=== PATIENT | male | born 1985 | race Caucasian/White ===

== ENCOUNTER 2016-09-01 18:28 | Emergency (ER) | payer OTHER ==
[~2016-09-01] VITALS: Ht 193 cm; Wt 87.0 kg
[~2016-09-01 18:28] MED LIST: HYDR-3533 PO; IBUP-238 PO; METH750T2 PO
[2016-09-01 18:30] VITALS: BP 134/77; PULSE 74; RESP 14; TEMP 98.2; O2SAT 100
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
[2016-09-01] MEDS ORDERED: TETANUS/DIPHTHERIA TOXOID ADULT 0.5 ML VIAL IM ONE (19:15)
[2016-09-04 11:11] LABS: HEPATITIS B SURFACE ANTIBODY GREATER THAN 150 mIU/mL
== END 2016-09-01 20:15 | disposition home or self-care (01) ==
LOC: NEPK 18:28
DX: Z77.21 Contact with and (suspected) exposure to potentially hazardous body fluids (principal); X58.XXXA Exposure to other specified factors, initial encounter; Y93.F9 Activity, other caregiving; Y92.9 Unspecified place or not applicable; Y99.0 Civilian activity done for income or pay; Z23 Encounter for immunization
CPT/HCPCS: 86317; 86703; 86803; 90471; 90714

== ENCOUNTER 2016-12-20 16:44 | Emergency (ER) | payer OTHER ==
[~2016-12-20] VITALS: Ht 188 cm; Wt 85.0 kg
[2016-12-20 16:46] VITALS: BP 125/79; PULSE 90; RESP 20; TEMP 98.9; O2SAT 96
--- NOTE | 2016-12-20 16:50 | PD ---
Physical Exam Time Seen by Provider: 16:48 Narrative 31yo M c/o R eye pain after jabbing himself in the eye w/ his thumb today. Blurry vision. +Eye redness, bloody drainage, purulent drainage. Patient seen in triage. VS reviewed. Awaiting bed placement. Data Data Last Documented VS Vital Signs Date Time Temp Pulse Resp B/P (MAP) Pulse Ox O2 Delivery O2 Flow Rate FiO2 12/20/16 16:46 98.9 90 20 125/79 (94) 96 Room Air MDM Supervised Visit with ALBERT: Tricia Smith Dec 20, 2016 16:50
[2016-12-20] MEDS ORDERED: FLUORESCEIN SOD 1 MG STRIP RIGHT EYE ONE (17:00)
[2016-12-20] MEDS ORDERED: PROPARACAINE HCL 0.5% OPHT SOLN 15 ML BTL RIGHT EYE ONE (17:00)
--- NOTE | 2016-12-20 17:21 | PD ---
HPI Chief Complaint: Eye Problems/Injury Time Seen by Provider: 16:58 Travel History International Travel<30 days: No Contact w/Intl Traveler<30days: No Traveled to known affect area: No History of Present Illness HPI 31-year-old male presents to emergency for her with injury to the right high. 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 He had immediate pain and some blood from the eye itself. He states he waited a while it seemed to getting better but then when he was at the house his pain worsen and he had a little more blood from the eye itself. Vision seems to be intact although uncomfortable. Patient has no known drug allergies. PFSH Past Medical History Pneumonia: Yes (HX OF PER PATIENT REPORT) Past Surgical History Oral Surgery: Yes (manuel perla) Social History Alcohol Use: No Tobacco Use: No Substance Use: No Allergies-Medications (Allergen,Severity, Reaction): Coded Allergies: No Known Allergies (Unverified , 10/25/15) Reported Meds & Prescriptions Reported Meds & Active Scripts Active Review of Systems Except as stated in HPI: all other systems reviewed are Neg General / Constitutional: No: Fever Eyes: Positive: Photophobia, Drainage, Redness, Pain, Tearing, No: Diploplia, Blurred Vision, Foreign Body Sensation, Blind Spots, Visual changes, Blindness HENT: No: Headaches Cardiovascular: No: Chest Pain or Discomfort Respiratory: No: Shortness of Breath Gastrointestinal: No: Abdominal Pain Genitourinary: No: Dysuria Musculoskeletal: No: Pain Skin: No Rash Neurologic: No: Weakness Psychiatric: No: Depression Endocrine: No: Polydipsia Hematologic/Lymphatic: No: Easy Bruising Physical Exam Narrative GENERAL: Patient appears in mild to moderate distress. SKIN: Warm and dry. Normal color. Normal turgor HEAD: Atraumatic. Normocephalic. EYES: Pupils equal and round. No scleral icterus. Right eye has moderate scleral conjunctival injection. Proparacaine drops and fluorescein dye instilled, and was lamp exam shows no corneal abrasion. Patient does appear to have a conjunctival abrasion to the inner lower aspect of the eye. Ocular motions are equal bilaterally. ENT: No nasal bleeding or discharge. Mucous membranes pink and moist. Pharynx is clear. Airway is patent. NECK: Trachea midline. Supple nontender. CARDIOVASCULAR: Regular rate and rhythm. RESPIRATORY: No accessory muscle use. Clear to auscultation. Breath sounds equal bilaterally. GASTROINTESTINAL: Abdomen soft, non-tender, nondistended. Hepatic and splenic margins not palpable. MUSCULOSKELETAL: Extremities without clubbing, cyanosis, or edema. No obvious deformities. NEUROLOGICAL: Awake and alert. No obvious cranial nerve deficits. Motor grossly within normal limits. Five out of 5 muscle strength in the arms and legs. Normal speech. PSYCHIATRIC: Appropriate mood and affect; insight and judgment normal. Data Data Last Documented VS Vital Signs Date Time Temp Pulse Resp B/P (MAP) Pulse Ox O2 Delivery O2 Flow Rate FiO2 12/20/16 16:46 98.9 90 20 125/79 (94) 96 Room Air Orders Orders Proparacaine 0.5% Opth Soln (Alcaine 0.5 (12/20/16 17:00) Fluorescein Strip (Kjrrn-G-Hwtslt A.T.) (12/20/16 17:00) MDM Medical Decision Making Medical Screen Exam Complete: Yes Emergency Medical Condition: Yes Differential Diagnosis Right eye contusion. Right eye scleral tear. Corneal abrasion. Narrative Course Patient will be treated with erythromycin ophthalmic ointment every 4 hours while awake. Patient is given ibuprofen 600 mg 4 times a day #40. Eye patch for comfort is applied. Work note is given for no work until cleared by primary care physician or nitrogen operator as discussed. Patient follow-up sooner if worsening symptoms develop. 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 Patient will need medical clearance on Saturday or Saturday to return to work next week. Additional Instructions: Patient will be treated with erythromycin ophthalmic ointment every 4 hours while awake. Patient is given ibuprofen 600 mg 4 times a day #40. Eye patch for comfort is applied. Work note is given for no work until cleared by primary care physician or nitrogen operator as discussed. Patient follow-up sooner if worsening symptoms develop. Med/Other Pt SpecificInfo: Prescription(s) given Disposition: 01 DISCHARGE HOME Condition: Stable Donte Hussein Dec 20, 2016 17:21
[2016-12-20] MEDS ORDERED: ERYTOIN10 RIGHT EYE (17:22)
== END 2016-12-20 17:34 | disposition home or self-care (01) ==
LOC: NEPK 16:44
DX: S05.01XA Injury of conjunctiva and corneal abrasion without foreign body, right eye, initial encounter (principal); W22.8XXA Striking against or struck by other objects, initial encounter
CPT/HCPCS: 99283

== ENCOUNTER 2017-05-24 19:49 | Emergency (ER) | payer OTHER ==
[~2017-05-24] VITALS: Ht 193 cm; Wt 85.0 kg
[~2017-05-24 19:49] MED LIST changes: +ERYTOIN10 RIGHT EYE; -HYDR-3533 PO; -IBUP-238 PO; -METH750T2 PO
[2017-05-24 19:51] VITALS: BP 132/74; PULSE 112; RESP 18; TEMP 100; O2SAT 97
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
[2017-05-24] MEDS ORDERED: IBUPROFEN 800 MG TAB PO ONE (21:00)
[2017-05-24] MEDS ORDERED: ONDANSETRON ODT 4 MG TAB PO ONE (21:00)
[2017-05-24] MEDS ORDERED: SODIUM CHLOR 0.9% 1000 ML INJ 1,000 ML IV ONE (21:45)
[2017-05-24 22:09] LABS: AUTOMATED NEUTROPHIL # 5.2 TH/MM3 (1.8-7.7); BASOPHIL % 0.4 % (0.0-2.0); EOSINOPHIL % 0.5 % (0.0-4.0); HEMATOCRIT 40.2 % (39.0-51.0); HEMOGLOBIN 13.9 GM/DL (13.0-17.0); LYMPH % 13.7 % (9.0-44.0); MEAN CELL VOLUME 87.1 FL (80.0-100.0); MEAN CORPUSCULAR HEMOGLOBIN 30.1 PG (27.0-34.0); MEAN CORPUSCULAR HGB CONC 34.6 % (32.0-36.0); MEAN PLATELET VOLUME 8.3 FL (7.0-11.0); MONO % 13.1 % (0.0-8.0); MONOCYTE # 0.9 TH/MM3 (0-0.9); NEUT % 72.3 % (16.0-70.0); PLATELET COUNT 202 TH/MM3 (150-450); RED BLOOD COUNT 4.61 MIL/MM3 (4.50-5.90); RED CELL DISTRIBUTION WIDTH 12.3 % (11.6-17.2); WHITE BLOOD COUNT 7.1 TH/MM3 (4.0-11.0)
--- NOTE | 2017-05-24 22:24 | RADRPT ---
EXAM DATE/TIME: 05/24/2017 22:02 [place] COMPARISON: No previous studies available for comparison. INDICATIONS : "Flu " like symptoms for one day. MEDICAL HISTORY : None. SURGICAL HISTORY : None. ENCOUNTER: Initial ACUITY: 1 day PAIN SCORE: 10/10 LOCATION: chest FINDINGS: A single view of the chest demonstrates the lungs to be symmetrically aerated without evidence of mas s, infiltrate or effusion. The cardiomediastinal contours are unremarkable. Osseous structures are intact. CONCLUSION: No acute disease. Lino Swann MD on May 24, 2017 at 22:21 Board Certified Radiologist. This report was verified electronically.
[2017-05-24 22:27] LABS: ALBUMIN 3.7 GM/DL (3.4-5.0); ALT (GPT) 13 U/L (12-78); AST (GOT) 7 U/L (15-37); BICARBONATE 26.9 MEQ/L (21.0-32.0); BLOOD UREA NITROGEN 20 MG/DL (7-18); CALCIUM 8.7 MG/DL (8.5-10.1); CHLORIDE 106 MEQ/L (98-107); GLOMERULAR FILTRATION RATE 88 ML/MIN (>89); GLUCOSE,RANDOM 101 MG/DL (74-106); SODIUM (NA) 139 MEQ/L (136-145)
[2017-05-24 22:30] LABS: ALKALINE PHOSPHATASE 79 U/L (45-117); TOTAL BILIRUBIN ADULT 1.2 MG/DL (0.2-1.0); TOTAL PROTEIN 7.6 GM/DL (6.4-8.2)
[2017-05-24 22:54] LABS: AMORPHOUS SEDIMENT, URINE RARE; BILIRUBIN, URINE NEG (NEG); BLOOD, URINE NEG (NEG); GLUCOSE,URINE NEG (NEG); KETONE, URINE NEG (NEG); MUCUS URINE FEW /lpf (OCC); NITRITE,URINE NEG (NEG); URINE COLOR YELLOW (YELLW/STRAW); URINE LEUKOCYTE ESTERASE NEG (NEG)
[2017-05-24 23:15] VITALS: TEMP 98.7
== END 2017-05-24 23:20 | disposition home or self-care (01) ==
LOC: NEPD 19:49
DX: B34.9 Viral infection, unspecified (principal)
CPT/HCPCS: 71045; 80053; 81001; 83605; 85025; 87040; 87804; 99284; J7030